=== PATIENT | female | born 1950 | race Caucasian/White ===

== ENCOUNTER → 2018-09-17 | Outpatient (CLI) | payer MEDICARE, OTHER ==
[2018-09-17 15:54] VITALS: BP 174/92; PULSE 69; TEMP 98.7; BMI 28.1
--- NOTE | 2018-10-01 14:21 | P.HPBAR ---
Bariatric H&P - History & Physicial H&P Date: 09/17/18 History & Physicial: Visit/CC: lap band followup Patient initial contact: Initial weight: Initial weight in pounds: Height: 5 ft 3 in Initial BMI: Last weight: Current weight: 72.121 kg Current weight in pounds: 159.00 Current BMI: 28.1 [place] body weight (based on NIH guidelines): 52.163 kg Excess body weight loss: The patient is a 67 year-old F who presents for Bariatric Assessment. Patient presents today for LAP-BAND adjustment. She currently has had some mild dysphagia. She recently had an adjustment of her band. Past Medical History Additional Past Medical History / Comment(s): chronic constipation History of Any Multi-Drug Resistant Organisms: None Reported Past Surgical History: Bariatric Surgery, Cholecystectomy, Joint Replacement, Orthopedic Surgery, Tonsillectomy Additional Past Surgical History / Comment(s): bilateral carpal tunnel surgery bilateral bunyonectomy surgery right knee replacement, right arm surgery lap band surgery 2002 Past Anesthesia/Blood Transfusion Reactions: No Reported Reaction Past Psychological History: Anxiety Smoking Status: Never smoker Past Alcohol Use History: None Reported Past Drug Use History: None Reported Surgical - Exam Vital Signs Temp Pulse BP 98.7 F 69 174/92 09/17/18 15:51 09/17/18 15:51 09/17/18 15:51 - General well developed, no distress - Abdomen Abdomen: soft, non tender Bariatric Assessment & Plan Plan: Patient's lap band was adjusted. She had 1 mL removed from the bed. She currently is 2.5 mL in the band. She'll follow-up in 4 weeks. Bariatric Checklist Checklist: Plan: Checklist: EGD: 1. Hiatal hernia: 2. H. Pylori: HgbA1c: Vitamin D: Smoking: Never smoker Primary care physician referral: Psychiatry clearance: Cardiology clearance: Sleep study: Diet journal: VTE risk score: VTE risk level: Rehab needs at discharge:
== END | disposition home or self-care (01) ==
LOC: BARWHC3 12:54
PROVIDERS: ATTEND Surgery
DX: Z46.51 Encounter for fitting and adjustment of gastric lap band (principal); Z98.84 Bariatric surgery status
CPT/HCPCS: 99212

== ENCOUNTER → 2018-10-29 | Outpatient (CLI) | payer MEDICARE, OTHER ==
[2018-10-29 13:04] VITALS: BP 161/82; PULSE 72; TEMP 98.2; BMI 28.0
--- NOTE | 2018-11-16 13:51 | P.HPBAR ---
Bariatric H&P - History & Physicial H&P Date: 10/29/18 History & Physicial: Visit/CC: lap band follow up Patient initial contact: Initial weight: Initial weight in pounds: Height: 5 ft 3 in Initial BMI: Last weight: Current weight: 71.668 kg Current weight in pounds: 158.00 Current BMI: 28.0 [place] body weight (based on NIH guidelines): 52.163 kg Excess body weight loss: The patient is a 67 year-old F who presents for Bariatric Assessment. Patient presents today for LAP-BAND follow-up. She currently is hungry and is requesting a fill. Past Medical History History of Any Multi-Drug Resistant Organisms: None Reported Smoking Status: Never smoker Surgical - Exam Vital Signs Temp Pulse BP 98.2 F 72 161/82 10/29/18 12:57 10/29/18 12:57 10/29/18 12:57 - General well developed, well nourished, no distress - Abdomen Abdomen: soft, non tender Bariatric Assessment & Plan Plan: Patient LAP-BAND was adjusted. She had 0.5 mL added to her band. She is able to water without difficulty. She'll follow-up in 4 weeks. Bariatric Checklist Checklist: Plan: Checklist: EGD: 1. Hiatal hernia: 2. H. Pylori: HgbA1c: Vitamin D: Smoking: Never smoker Primary care physician referral: Psychiatry clearance: Cardiology clearance: Sleep study: Diet journal: VTE risk score: VTE risk level: Rehab needs at discharge:
== END | disposition home or self-care (01) ==
LOC: BARWHC3 12:25
PROVIDERS: ATTEND Surgery
DX: Z46.51 Encounter for fitting and adjustment of gastric lap band (principal)
CPT/HCPCS: 99212

== ENCOUNTER → 2019-01-07 | Outpatient (CLI) | payer MEDICARE, OTHER ==
[2019-01-07 14:41] VITALS: BP 169/78; PULSE 60; RESP 16; TEMP 98.1; BMI 27.8
--- NOTE | 2019-01-07 16:19 | P.HPBAR ---
Bariatric H&P - History & Physicial H&P Date: 01/07/19 History & Physicial: Visit/CC: Band Adj Patient initial contact: Initial weight: 139.253 kg Initial weight in pounds: 307.00 Height: 5 ft 3 in Initial BMI: 54.3 Last weight: Current weight: 71.384 kg Current weight in pounds: 157.38 Current BMI: 27.8 [place] body weight (based on NIH guidelines): 52.163 kg Excess body weight loss: 77.9% The patient is a 68 year-old F who presents for Bariatric Assessment. Patient presents today for LAP-BAND adjustment. She currently feels hungry. She is requesting a fill. Past Medical History History of Any Multi-Drug Resistant Organisms: None Reported Smoking Status: Never smoker Surgical - Exam Vital Signs Temp Pulse Resp BP 98.1 F 60 16 169/78 01/07/19 14:39 01/07/19 14:39 01/07/19 14:39 01/07/19 14:39 - General well developed, well nourished, no distress - Abdomen Abdomen: soft, non tender Bariatric Assessment & Plan Plan: The patient's lap band was adjusted. She had 0.5 mL added to the band. She currently has 3.0 mL in the band. She'll follow-up in 4 weeks. Bariatric Checklist Checklist: Plan: Checklist: EGD: 1. Hiatal hernia: 2. H. Pylori: HgbA1c: Vitamin D: Smoking: Never smoker Primary care physician referral: Psychiatry clearance: Cardiology clearance: Sleep study: Diet journal: VTE risk score: VTE risk level: Rehab needs at discharge:
== END | disposition home or self-care (01) ==
LOC: BARWHC3 13:31
PROVIDERS: ATTEND Surgery
DX: Z46.51 Encounter for fitting and adjustment of gastric lap band (principal)
CPT/HCPCS: 99212

== ENCOUNTER → 2021-10-04 | Outpatient (CLI) | payer MEDICARE, OTHER ==
[2021-10-04 13:27] VITALS: BP 133/69; PULSE 67; TEMP 98.4; BMI 26.9
--- NOTE | 2021-10-04 15:49 | P.HPBAR ---
Bariatric H&P - History & Physicial H&P Date: 10/04/21 History & Physicial: Visit/CC: lap band Patient initial contact: Initial weight: 139.253 kg Initial weight in pounds: 307.00 Height: 5 ft 3 in Initial BMI: 54.3 Last weight: Current weight: 68.946 kg Current weight in pounds: 152.00 Current BMI: 26.9 [place] body weight (based on NIH guidelines): 52.163 kg Excess body weight loss: 80.7% The patient is a 70 year-old F who presents for Bariatric Assessment. Patient presents today for bariatric follow-up. She is requesting a fill of her [place]. Past Medical History Past Medical History: Rheumatoid Arthritis (RA) Additional Past Medical History / Comment(s): polymyalgia rheumatica History of Any Multi-Drug Resistant Organisms: None Reported Past Surgical History: Bariatric Surgery, Joint Replacement Additional Past Surgical History / Comment(s): lap band 2002. [place] knee replacement Past Anesthesia/Blood Transfusion Reactions: No Reported Reaction Past Psychological History: No Psychological Hx Reported Smoking Status: Never smoker Past Alcohol Use History: None Reported Past Drug Use History: None Reported Surgical - Exam Vital Signs Temp Pulse BP 98.4 F 67 133/69 10/04/21 13:20 10/04/21 13:20 10/04/21 13:20 - General well developed, well nourished - Abdomen Abdomen: soft, non tender Bariatric Assessment & Plan Plan: Patient LAP-BAND was adjusted. She had 0.2 mL added to the band. She'll follow-up in 4 weeks. Bariatric Checklist Checklist: Plan: Checklist: EGD: 1. Hiatal hernia: 2. H. Pylori: HgbA1c: Vitamin D: Smoking: Never smoker Primary care physician referral: Dr. Nice Psychiatry clearance: Cardiology clearance: Sleep study: Diet journal: VTE risk score: VTE risk level: Rehab needs at discharge:
== END ==
LOC: BARWHC3 13:10
PROVIDERS: ATTEND Surgery
DX: Z46.51 Encounter for fitting and adjustment of gastric lap band (principal); M06.9 Rheumatoid arthritis, unspecified; Z91.048 Other nonmedicinal substance allergy status; Z88.5 Allergy status to narcotic agent; Z88.6 Allergy status to analgesic agent; Z88.4 Allergy status to anesthetic agent; Z88.8 Allergy status to other drugs, medicaments and biological substances; Z88.2 Allergy status to sulfonamides
CPT/HCPCS: 99212